=== PATIENT | female | born 1985 | race Caucasian/White ===

== ENCOUNTER 2018-01-14 16:54 | Outpatient (CLI) | payer BC ==
[2018-01-14 18:14] LABS: Hemoglobin A1c 4.9 % (4.0-6.0)
--- NOTE | 2018-01-14 18:57 | RAD ---
FOUR VIEWS SACRUM AND COCCYX 01/14/18 INDICATION: Pain within the coccygeal region since second trimester which was February of 2017. It has not resolved after the of the baby. FINDINGS: No displaced fracture is evident. Visualized coccygeal segments appear aligned. There is some mild ca lcifications seen along the C1-C2 articulation which can be degenerative in nature. SI joints appears normal. Symphysis pubis is normal. IMPRESSION: No acute osseous abnormality. POS: VALERIE
== END 2018-01-14 16:55 | disposition home or self-care (01) ==
LOC: SCSRAD 16:54
PROVIDERS: ATTEND Family Medicine
DX: M53.3 Sacrococcygeal disorders, not elsewhere classified (principal); E66.3 Overweight; Z86.79 Personal history of other diseases of the circulatory system
CPT/HCPCS: 36415; 72220; 83036

== ENCOUNTER 2019-06-01 07:05 | Outpatient (CLI) | payer BC ==
--- NOTE | 2019-06-01 09:28 | ULT ---
PELVIC ULTRASOUND WITH LANGFORD SCALE AND DOPPLER COLOR FLOW IMAGING: Date: 06/01/19 CLINICAL HISTORY: Abnormal uterine bleeding, 33-year-old female. Reference is made to 09/26/15 exam. FINDINGS: There is thickening of the endometrium with stripe measurement nearing 2.0 cm. Otherwise, no signific ant uterine parenchymal abnormality is seen. There is a dominant cyst of the right ovary which measur es 2.9 cm in diameter. Left ovary is unremarkable. There is a nabothian cyst formation. No significan t free pelvic fluid. IMPRESSION: 1. Thickening of the endometrium. This could be physiologic given the patient's age, however, in lig ht of the patient's clinical abnormalities, recommend a 6 week follow-up to confirm expected physiolo gic resolution. 2. Dominant cyst of the right ovary. POS: C
== END 2019-06-01 07:06 | disposition home or self-care (01) ==
LOC: SCSULT 07:05
PROVIDERS: ATTEND Obstetrics & Gynecology Gynecology
DX: N93.9 Abnormal uterine and vaginal bleeding, unspecified (principal); R93.89 Abnormal findings on diagnostic imaging of other specified body structures; N83.201 Unspecified ovarian cyst, right side
CPT/HCPCS: 76856

== ENCOUNTER 2021-06-14 06:49 | Outpatient (CLI) | payer OTHER | END 2021-06-14 06:50 | disposition home or self-care (01) | LOC: BICULT 06:49 | DX: N93.9 Abnormal uterine and vaginal bleeding, unspecified (principal) | CPT/HCPCS: 76856 ==

== ENCOUNTER 2022-02-20 14:23 | Outpatient (CLI) | payer BC | END 2022-02-20 14:24 | disposition home or self-care (01) | LOC: BICRAD 14:23 | PROVIDERS: ATTEND Family Medicine | DX: U09.9 Post COVID-19 condition, unspecified (principal) | CPT/HCPCS: 71046 ==